=== PATIENT | female | born 1985 | race Caucasian/White ===

== ENCOUNTER 2022-10-23 10:42 | Emergency (ER) | payer MEDICAID ==
[~2022-10-23] VITALS: Ht 152.4 cm; Wt 66.0 kg
[2022-10-23 11:16] LABS: Urine Bacteria FEW /hpf (None Seen); Urine Blood Negative /uL (Negative); Urine Mucus FEW (None Seen); Urine Specific Gravity 1.023 (1.001-1.035); Urine WBC 13 /hpf (0 - 5)
[2022-10-23 11:31] LABS: Basophils # (auto) 0 10 ^3/uL (0-0.2); Basophils % (auto) 0.5 % (0.0-2.0); Eosinophils # (auto) 0.1 10 ^3/uL (0-0.8); Eosinophils % (auto) 1.1 % (0.0-7.0); Hematocrit 39.6 % (36.0-46.0); Hemoglobin 13.9 g/dL (12.2-16.2); Lymphocytes # (auto) 1.8 10 ^3/uL (0.4-5.4); Lymphocytes % (auto) 24.3 % (10.0-50.0); Mean Corpuscular Hemoglobin 30.8 pg (28.0-32.0); Mean Corpuscular Hgb Conc. 34.9 g/dL (32.0-36.0); Mean Corpuscular Volume 88.2 fL (80.0-100.0); Monocytes # (auto) 0.3 10 ^3/uL (0-1.3); Monocytes % (auto) 3.9 % (0.0-12.0); Neutrophils # (auto) 5.2 10 ^3/uL (1.6-8.6); Neutrophils % (auto) 70.2 % (37.0-80.0); Nucleated Red Blood Cells % 0.1 %; White Blood Cell 7.4 10^3/uL (4.4-10.8)
[2022-10-23 11:58] LABS: Calcium 8.8 mg/dL (8.5-10.1); Potassium 3.4 mmol/L (3.5-5.1)
[2022-10-23 12:05] LABS: Albumin 4.3 g/dL (3.4-5.0); BUN/Creatinine Ratio 14.1 (10.0-20.0); Bilirubin, Total 1.6 mg/dL (0.2-1.0); Total Protein 7.9 g/dL (6.4-8.2)
[2022-10-23] MEDS ORDERED: NITR-87 PO (12:41)
[2022-10-23] MEDS ORDERED: ONDA-144 PO (12:42)
[2022-10-23] MEDS ORDERED: KETOROLAC TROMETH 30 MG/ML 1ML VIAL IM ONE (14:30)
[2022-10-23 14:31] VITALS: BP 121/69
== END 2022-10-23 14:49 | disposition home or self-care (01) ==
LOC: ER 10:42
DX: N39.0 Urinary tract infection, site not specified (principal); R10.84 Generalized abdominal pain; R10.2 Pelvic and perineal pain
CPT/HCPCS: 36415; 74176; 76856; 80053; 81001; 83690; 84702; 85025; 96372; 99285; J1885

== ENCOUNTER 2022-12-24 09:48 | Emergency (ER) | payer MEDICAID ==
[~2022-12-24] VITALS: Ht 152.4 cm; Wt 66.7 kg
[~2022-12-24 09:48] MED LIST: NITR-87 PO; ONDA-144 PO
[2022-12-24 10:45] VITALS: BP 129/78; PULSE 90; RESP 17; TEMP 98.1; O2SAT 96
[2022-12-24] MEDS ORDERED: [UNRECOGNIZED DRUG - CODE] LEFTEYE (11:37)
== END 2022-12-24 11:44 | disposition home or self-care (01) ==
LOC: ER 09:48
DX: H10.9 Unspecified conjunctivitis (principal); Z79.899 Other long term (current) drug therapy